=== PATIENT | male | born 2000 | race Hispanic/Latino ===

== ENCOUNTER 2025-05-19 09:40 | Emergency (ER) | payer OTHER ==
[~2025-05-19] VITALS: Ht 165.1 cm; Wt 80.9 kg
[2025-05-19] MEDS: KETOROLAC 30 MG/ML 1 ML VIAL IM ONE (12:40)
[2025-05-19] MEDS ORDERED: MEDR4PAK PO (14:00)
[2025-05-19] MEDS ORDERED: KETO-204 PO (14:00)
[2025-05-19 14:09] VITALS: BP 128/78; TEMP 98.2; O2SAT 97
== END 2025-05-19 14:14 | disposition home or self-care (01) ==
LOC: EDSEX 09:40 → M ED 09:40
DX: M51.26 Other intervertebral disc displacement, lumbar region (principal); Z79.2 Long term (current) use of antibiotics; Z79.899 Other long term (current) drug therapy
CPT/HCPCS: 72131; 96372; 99283; J1885